=== PATIENT | male | born 1980 | race Caucasian/White ===

== ENCOUNTER → 2017-12-01 | Outpatient (CLI) | payer OTHER ==
[2014-05-10 09:44] VITALS: BP 128/80
[2017-12-01 17:10] LABS: BASOPHILS % 0.6 (0.0-1.5); EOSINOPHILS % 4.9 % (0.0-6.8); MEAN CORPUSCULAR HEMOGLOBIN 30.5 pg (28.0-34.0); MEAN CORPUSCULAR VOLUME 93.7 fl (80.0-100.0); MONOCYTES % 5.9 % (0.0-11.0)
[2017-12-01 17:21] LABS: eGFR (African) > 60; eGFR (Non-African) > 60
== END ==
LOC: LAB 16:30
PROVIDERS: ATTEND Physician Assistant
DX: R55 Syncope and collapse (principal); R00.0 Tachycardia, unspecified
CPT/HCPCS: 80053; 84439; 84443; 84481; 85025